=== PATIENT | male | born 1990 ===

== ENCOUNTER → 2023-08-18 10:26 | Outpatient (CLI) | payer OTHER, SELFPAY ==
--- NOTE | ~2023-08-18 | MR_ITS ---
EXAMINATION: MR shoulder RT wo/w con DATE: 08/18/2023 11:49 INDICATION: Right shoulder pain. Displaced fracture of humerus. TECHNIQUE: Magnetic resonance imaging (MRI) of the right shoulder was performed without and with 16 m L MultiHance intravenous contrast. COMPARISON: None. FINDINGS: Coracoacromial arch: The acromion undersurface is flat in morphology (type I). The acromioclavicular joint is normal. Ther e is mild subacromial/subdeltoid bursitis. Rotator cuff: There is mild supraspinatus and infraspinatus tendinopathy. Teres minor tendon is normal. Subscapular is tendon is normal. The rotator cuff muscle bellies are normal. Biceps tendon and glenoid labrum: Biceps tendon is in bicipital groove. The glenoid labrum is normal. Fluid: There is a small glenohumeral joint effusion. Bones/cartilage: There is a nondisplaced comminuted fracture involving the greater tuberosity, lesser tuberosity, and surgical neck of proximal right humerus. IMPRESSION: 1. Comminuted one-part fracture of proximal right humerus. 2. Mild rotator cuff tendinopathy. No tear. 3. Small glenohumeral joint effusion. Reviewed, dictated and finalized at location A. SPECIALIST
== END ==
PROVIDERS: PCP Physician Assistant; Visit Provider Physician Assistant
DX: S42.251A Displaced fracture of greater tuberosity of right humerus, initial encounter for closed fracture (principal); M67.813 Other specified disorders of tendon, right shoulder; M25.411 Effusion, right shoulder; X58.XXXA Exposure to other specified factors, initial encounter
CPT/HCPCS: 73223; A9577